=== PATIENT | male | born 1995 | race Caucasian/White ===

== ENCOUNTER → 2019-09-22 13:50 | Outpatient (BNVA) | payer SELFPAY | PROVIDERS: Family Provider Nurse Practitioner; PCP Nurse Practitioner; Visit Provider Nurse Practitioner Family | DX: I10 Essential (primary) hypertension (principal); R04.0 Epistaxis; R00.2 Palpitations; F41.9 Anxiety disorder, unspecified; F32.9 Major depressive disorder, single episode, unspecified; F17.200 Nicotine dependence, unspecified, uncomplicated | CPT/HCPCS: 80053; 80061; 84443; 85025; 85610 ==

== ENCOUNTER 2019-11-04 11:04 | Emergency (ER) | payer SELFPAY ==
[2019-11-04 11:19] VITALS: BMI 34.8
[2019-11-04 11:22] VITALS: BP 161/106; PULSE 97; RESP 16; TEMP 37.2; O2SAT 94
--- NOTE | 2019-11-04 11:34 | XRR_ITS ---
PROCEDURE INFORMATION: Exam: XR Left Knee Exam date and time: 11/04/2019 11:50 AM Age: 24 years old Clinical indication: Patient HX: C/O left knee pain. [place] a pop TECHNIQUE: Imaging protocol: XR Left knee. Views: 3 views. COMPARISON: No relevant prior studies available. FINDINGS: Bones/joints: Normal. Soft tissues: Normal. XR/XR knee LT 3V* [id number] IMPRESSION: No acute findings.
--- NOTE | 2019-11-04 11:51 | W.ED.EXTPRO ---
HPI - Extremity Problem General: Chief complaint: Extremity Injury, Lower Stated complaint: LEFT LEG PAIN Time Seen by Provider: 11/04/19 11:21 History of Present Illness: HPI Narrative: Patient comes in complain about the left knee pain. Patient states that he was standing near his bed lift his leg up on his bed and he felt a pop in his left knee. Said he felt immediate pain. Patient has a history of derangement to that knee previously for experience. Patient says it hurts to straighten his leg out now. Says he has mild pain when it is flexed completely. Denies any swelling or other trauma. MD Complaint: joint pain Onset (ago): hour(s) (2) Pain Consistency: constant Location: left and knee Severity scale (1-10): 7 Quality: aching Radiation: none Relieving factors: immobilization Exacerbating factors: range of motion Associated symptoms: Reports no associated symptoms; Deny chest pain, fever(s) or rash Review of Systems Const: Denies: fever(s), chills or body aches Eyes: Denies: change in vision or blurry vision ENMT: Denies: throat pain or nasal congestion Card: Denies: chest pain or dyspnea on exertion Resp: Denies: dyspnea, productive cough or non-productive cough GI: Denies: abdominal pain, nausea or vomiting : Denies: difficulty urinating Musc: Reports: joint pain (Left knee started this a.m. history of chronic knee pain); Denies: extremity pain Skin/Breast: Denies: rash Neuro: Denies: headache(s) Psych: Denies: anxiety or depression Jose Alejandro/Lymph: Denies: easy bruising [facility] PFSH: Medical History (Updated 09/22/19 @ 17:30 by LUIS Landa) Atypical chest pain Elevated troponin Hypertension Palpitations Surgical History S/P tonsillectomy Family History Other CAD (coronary artery disease) Social History (Updated 09/22/19 @ 14:51 by Lillian Wheat LPN, RT) Smoking and tobacco status: current every day smoker cigarettes Packs smoked per day: 1 Years cigarettes smoked: 15 Second hand smoke exposure: No Alcohol intake: never Lives independently: Yes Household members: spouse and children Marital status: Current occupational status: unemployed History of recent travel: No Current gender identity: Male Physical Exam Const: COMMON NORMALS: no acute distress, average body habitus and patient oriented x3 HENMT: COMMON NORMALS: normocephalic HEAD & SCALP: normal to inspection and normocephalic FACE & SINUS: normal facial exam Eye: COMMON NORMALS: conjunctivae normal GENERAL EYE: appearance normal, both eyes and all related structures CONJUNCTIVA: Yes conjunctivae normal Neck/C-Spine: COMMON NORMALS: no JVD Chest: COMMONS NORMALS: normal inspection of the chest Resp: COMMON NORMALS: normal respiratory effort Cardio: COMMON NORMALS: no JVD GI: INSPECTION: Yes normal to inspection Extremity: COMMON NORMALS: normal to inspection LEFT LOWER EXTREMITY: Yes knee joint (Pain with range of motion. Normal temperature no erythema noted. Pain with extension of the knee. No laxity was able to be determined due to the pain in patient's knee.) Neuro: COMMON NORMALS: patient oriented x3 Course Vital Signs: Vital signs: Vital Signs Temperature 99.0 F 11/04/19 11:22 Pulse Rate 97 11/04/19 11:22 Respiratory Rate 16 11/04/19 11:22 Blood Pressure 161/106 11/04/19 11:22 Pulse Oximetry 94 11/04/19 11:22 Discharge Plan Discharge Prescriptions: No Action nitroglycerin [Nitrostat] 0.4 mg tablet, sublingual 0.4 mg SUBLINGUAL Q5M PRNRF: 0 aspirin [Adult Low Dose Aspirin] 81 mg tablet,delayed release (DR/EC) 81 mg PO QDAY RF: 0 atorvastatin [Lipitor] 40 mg tablet 40 mg PO QDAY RF: 0 carvedilol 12.5 mg tablet 12.5 mg PO Q12H 30 Days Qty: 60 RF: 3 bupropion HCl [Wellbutrin XL] 150 mg tablet extended release 24 hr 150 mg PO QAM Qty: 30 RF: 2 Coding Level of Care Code ED Sales Utility Representative for Al Tapia
[2019-11-04] MEDS: HYDROcodone-acetaminophen 5-325 mg Tablet 1 TAB PO (12:07)
[2019-11-04] MEDS: ketorolac 60 mg/2 mL INJ IM (12:07)
[2019-11-04 12:27] VITALS: BP 148/96; PULSE 86; RESP 18; O2SAT 96
== END 2019-11-04 12:27 | disposition home or self-care (01) ==
PROVIDERS: Emergency Provider Nurse Practitioner Family; PCP Nurse Practitioner
DX: M79.605 Pain in left leg (principal); Z79.82 Long term (current) use of aspirin; I10 Essential (primary) hypertension; F17.210 Nicotine dependence, cigarettes, uncomplicated
CPT/HCPCS: 12345; 73562; 96372; 99281; 99283; E0114; J1885

== ENCOUNTER → 2020-07-29 09:38 | Outpatient (BNVA) | payer SELFPAY | PROVIDERS: PCP Nurse Practitioner; Visit Provider Nurse Practitioner Family | DX: J02.9 Acute pharyngitis, unspecified (principal) | CPT/HCPCS: 87071; 87880 ==

== ENCOUNTER → 2021-07-06 15:24 | Outpatient (BNVA) | payer SELFPAY | PROVIDERS: PCP Nurse Practitioner; Visit Provider Nurse Practitioner Family | DX: Z20.822 Contact with and (suspected) exposure to COVID-19 (principal); R05.9 Cough, unspecified | CPT/HCPCS: 87400; 87635 ==

== ENCOUNTER → 2021-07-07 21:34 | Outpatient (BNVA) | payer SELFPAY | PROVIDERS: PCP Nurse Practitioner; Visit Provider Nurse Practitioner Family | DX: R05.9 Cough, unspecified (principal); Z20.822 Contact with and (suspected) exposure to COVID-19 | CPT/HCPCS: 87801 ==

== ENCOUNTER → 2021-07-17 13:22 | Outpatient (BNVA) | payer SELFPAY | PROVIDERS: PCP Nurse Practitioner; Visit Provider Nurse Practitioner Family | DX: Z20.822 Contact with and (suspected) exposure to COVID-19 (principal); J40 Bronchitis, not specified as acute or chronic; R05.9 Cough, unspecified; J32.0 Chronic maxillary sinusitis | CPT/HCPCS: 87635 ==

== ENCOUNTER 2022-04-05 08:44 | Emergency (ER) | payer OTHER, SELFPAY ==
[2022-04-05 09:00] VITALS: BP 159/91; PULSE 86; RESP 16; TEMP 36.8; O2SAT 99
--- NOTE | 2022-04-05 09:03 | XRR_ITS ---
PROCEDURE INFORMATION: Exam: XR Chest Exam date and time: 04/05/2022 9:11 AM Age: 27 years old Clinical indication: Pain; Angina pectoris; Additional info: Cp TECHNIQUE: Imaging protocol: Radiologic exam of the chest. Views: 1 view. COMPARISON: CR XR chest 1V [id number] 04/01/2019 1:09 PM FINDINGS: Lungs: Normal lung volumes. No interstitial or airspace opacities. Pleural spaces: No pleural effusion. No pneumothorax. Heart/Mediastinum: Normal heart size. Normal mediastinal contour. Midline trachea. Bones/joints: No acute abnormalities. XR/XR chest 1V portable [id number] IMPRESSION: No chest radiographic evidence of acute cardiopulmonary disease.
--- NOTE | 2022-04-05 09:03 | ECG_ITS ---
[facility] Test Date: 2022-04-05 Pat Name: Pascual Cook Department: Room: Gender: Male Customer Training Specialist: : 1995 Requested By: Rhys Vidal Order Number: [id number] Wei MD: Jesus Montano M.D. Measurements Intervals [place] Rate: 84 P: 55 [place]: 148 QRS: 84 QRSD: 94 T: 46 QT: 340 QTc: 402 Interpretive Statements SINUS RHYTHM Compared to ECG 04/01/2019 14:26:16 Sinus arrhythmia no longer present Early repolarization no longer present Electronically Signed On 04-06-2022 13:49:56 CODING CLERKS SUPERVISOR by Jesus Montano M.D. [email or web address] Technologiesmadison healthOrnim Medical/store/NU/[id number] f
[2022-04-05 09:04] VITALS: BP 159/91; PULSE 79; RESP 16; O2SAT 99
--- NOTE | 2022-04-05 09:21 | ED_ITS ---
HPI - Chest Pain General: Chief Complaint: Chest Pain Stated Complaint: chest pain Time Seen by Provider: 04/05/22 08:45 History of Present Illness: Patient is a 27-year-old male who comes to the ED with chest pain. He has a history of chest pain and elevated troponins and underwent a cardiac catheterization and coronary angiogram at [facility] in 2019. They found no significant findings upon catheterization and they opted to treat him medically. Patient says he does not take any medications daily and does not take any hypertension medications. His first episode of chest pain recently occurred at rest 4 days ago and the episode lasted for about 30 minutes and resolved. This morning patient says he got up and was driving to work and started feeling left-sided chest pain that radiates into his left arm. Denies any worsening or improving factors. He rates his current chest pain a 2 out of 10. He does describe the pain as a burning sensation in the chest and said it does feel kind of like acid reflux. He endorses being under a lot of stress in his personal life recently. Denies any diaphoresis or shortness of breath. Associated symptoms: Deny abdominal pain, dyspnea, fever(s), nausea, palpitations or vomiting Review of Systems Const: Denies: fever(s), chills or fatigue Eyes: Denies: change in vision or eye discomfort ENMT: Denies: throat pain, odynophagia, nasal discharge or nasal congestion Card: Reports: chest pain; Denies: palpitations, edema, swelling of feet/ankles, dyspnea on exertion or orthopnea Resp: Denies: dyspnea, productive cough or non-productive cough GI: Denies: abdominal pain, nausea, vomiting, diarrhea, constipation or hematochezia : Denies: flank pain, difficulty urinating, dysuria or hematuria Musc: Denies: neck pain, back pain or extremity swelling Skin/Breast: Denies: rash or new lesions Neuro: Denies: headache(s), numbness in extremities or weakness in extremities PFS ED PFSH: Medical History (Updated 04/05/22 @ 12:07 by TONY Rose) Atypical chest pain Elevated troponin Hypertension Palpitations Surgical History S/P tonsillectomy Family History Other CAD (coronary artery disease) Social History Smoking and tobacco status: never smoked Second hand smoke exposure: Yes Smoking risk assessment/counseling performed?: Yes Alcohol intake: never Desire information about alcohol rehabilitation?: No Counseling given: No Desire information about substance/drug rehabilitation?: No Counseling given: No Adopted: No Caregiver/support person: No Lives independently: Yes Household members: spouse and children Marital status: service: Yes branch: [employer] Current occupational status: unemployed History of recent travel: No Current gender identity: Male Physical Exam Const: COMMON NORMALS: no acute distress, patient oriented x3 and alert GENERAL APPEARANCE: cooperative HENMT: COMMON NORMALS: normocephalic HEAD & SCALP: normocephalic MOUTH: Normal oral and palatal mucosa present THROAT: posterior oropharynx normal and uvula midline Neck/C-Spine: COMMON NORMALS: supple GENERAL: Yes normal visual inspection Resp: COMMON NORMALS: normal respiratory effort, No retractions, No use of accessory muscles and clear to auscultation bilaterally AUSCULTATION: clear to auscultation bilaterally Cardio: COMMON NORMALS: regular rate, regular rhythm, S1 normal heart sound present, S2 normal heart sound present, No gallops present (Cardio), No clicks present (Cardio), No murmurs present (Cardio) and Peripheral pulses 2+ throughout RATE: regular rate RHYTHM: regular rhythm HEART SOUNDS: S1 normal heart sound present and S2 normal heart sound present PERIPHERAL PULSES: Peripheral pulses 2+ throughout GI: COMMON NORMALS: Normal to inspection, nondistended, normoactive bowel sounds present, Soft to palpation, non-tender and no masses PALPATION: Yes Soft to palpation : COMMON NORMALS: Yes no CVA tenderness BLADDER/KIDNEY EXAM: Yes no CVA t enderness Back/Pelvis: COMMON NORMALS: no CVA tenderness Extremity: COMMON NORMALS: normal to inspection Neuro: COMMON NORMALS: patient oriented x3 SENSORIUM/ORIENTATION: Yes alert GAIT: Yes Normal gait present Skin: GENERAL SKIN EXAM: dry skin Course Vital Signs: Vital signs: Vital Signs Temperature 98.2 F 04/05/22 09:00 Pulse Rate 60 04/05/22 12:48 Respiratory Rate 16 04/05/22 12:48 Blood Pressure 118/66 04/05/22 12:48 Pulse Oximetry 96 04/05/22 12:48 Oxygen Delivery Me thod 04/05/22 11:54 MDM - Chest Pain Medical Decision Making Patient is a 27-year-old male who comes to the ED with chest pain. He has a history of chest pain and elevated troponins and underwent a cardiac catheterization and coronary angiogram at [facility] in 2019. Vitals are stable. Exam of patient is benign. CBC and CMP are unremarkable. Troponins negative. EKG showed acute findings. Chest x-ray showed no acute findings. Patient was stable for discharge home and diagnosed with atypical chest pain. He was told to follow-up with his PCP within the next week for reevaluation. Return to ED precautions given. Patient understood and agreed with plan. Lab Data I reviewed the patient's lab results. 04/05/22 09:11 04/05/22 09:11 Radiology Impressions Chest X-Ray 04/05/22 09:03 IMPRESSION: No chest radiographic evidence of acute cardiopulmonary disease. Laboratory Results WBC 5.0 10^3/uL (4.0-10.0) 04/05/22 09:11 RBC 4.75 10^6/uL (4.1-5.3) 04/05/22 09:11 Hgb 14.7 g/dL (11.7-16.6) 04/05/22 09:11 Hct 41.7 % (42.0-52.0) L 04/05/22 09:11 MCV 87.8 fl (80-94) 04/05/22 09:11 MCH 30.9 pg (28.0-34.0) 04/05/22 09:11 MCHC 35.3 g/dL (30.0-36.0) 04/05/22 09:11 RDW 11.9 % (12.1-15.1) L 04/05/22 09:11 Plt Count 186 10^3/cmm (130-400) 04/05/22 09:11 MPV 11.5 fL (7.4-10.4) H 04/05/22 09:11 Neut % (Auto) 58.6 % 04/05/22 09:11 Lymph % (Auto) 32.0 % 04/05/22 09:11 [place] % (Auto) 7.0 % 04/05/22 09:11 Eos % (Auto) 1.8 % 04/05/22 09:11 Baso % (Auto) 0.4 % 04/05/22 09:11 Neut # (Auto) 2.91 10^3/uL (1.8-7.7) 04/05/22 09:11 Lymph # (Auto) 1.6 10^3/uL (0.8-4.8) 04/05/22 09:11 [place] # (Auto) 0.4 10^3/uL (0.2-0.9) 04/05/22 09:11 Eos # (Auto) 0.1 10^3/uL (0.0-0.8) 04/05/22 09:11 Baso # (Auto) 0.0 10^3/uL (0.0-0.1) 04/05/22 09:11 Nucleated RBC % (auto) 0 % 04/05/22 09:11 Nucleated RBCs # 0.0 /100WBC 04/05/22 09:11 Sodium 141 mmol/L (136-145) 04/05/22 09:11 Potassium 3.8 mmol/L (3.5-5.1) 04/05/22 09:11 Chloride 105 mmol/L (98-107) 04/05/22 09:11 Carbon Dioxide 26 mmol/L (22-29) 04/05/22 09:11 Anion Gap 13.8 (5-19) 04/05/22 09:11 BUN 17 mg/dL (6-20) 04/05/22 09:11 Creatinine 1.0 mg/dL (0.7-1.2) 04/05/22 09:11 GFR Calculation 89.0 mL/min (90-130) L 04/05/22 09:11 Glucose 99 mg/dL (65-115) 04/05/22 09:11 Calculated Osmolality 294 mOsm/kg (285-295) 04/05/22 09:11 Calcium 9.5 mg/dL (8.5-10.5) 04/05/22 09:11 Total Bilirubin 0.4 mg/dL (0.15-1.2) 04/05/22 09:11 AST 21 U/L (0-40) 04/05/22 09:11 ALT 23 U/L (0-41) 04/05/22 09:11 Alkaline Phosphatase 85 U/L (40-130) 04/05/22 09:11 Troponin T Baseline 6 ng/L (0-15) 04/05/22 09:11 Troponin T 120 Minute 6.00 ng/L (0-15) 04/05/22 11:21 Delta Troponin T 0 ABS# (0-10) 04/05/22 11:21 NT-Pro-B Natriuret Pep 5 pg/mL (0-125) 04/05/22 09:11 Total Protein 7.2 g/dL (6.6-8.7) 04/05/22 09:11 Albumin 4.6 g/dL (3.5-5.2) 04/05/22 09:11 Globulin 2.6 g/dL (1.3-4.6) 04/05/22 09:11 EKG Data EKG 1: EKG interpretation date: 04/05/22 Interpretation: Sinus rhythm, early repolarization in lead II. No other ST segment elevation or depression seen. 71 bpm. Discharge Plan Discharge Patient Disposition: Home Clinical Impression: Atypical chest pain Condition: Stable Prescriptions: No Action ibuprofen 200 mg Tablet 400 mg PO Q6H PRN (Reason: Pain) Discharge Orders: Discharge ED (Routine); Ordered 04/05/22 Ordered By: Rhys Vidal Referrals: Dhruv Mata FNP-C [Primary Care Provider] - Discharge Diet: Regular Discharge Activity: Increase activity as tolerated Patient Instructions: Chest Pain (DC) Activity Restrictions/Additional Instructions: Follow-up with medical provider as directed in the next 5-7 days for reevaluation. Take medications as prescribed. Return to the ER or your medical provider if condition worsens. Please read and understand discharge instructions. Thank you for choosing [facility] for your healthcare needs today. Please realize this is an emergency room and that we are providing you with a medical screening exam and this may not be complete and all inclusive of all the testing and or work up that you may need to determine your ailment or severity of your illness. It is very important that you follow up as instructed or that you return to the Emergency Department should you have concerns or if your condition changes or worsens in any way. Stand Alone Forms: Work/School Release Coding Level of Care Code ED Medical Records Secretary for Chg Fwd Exam Comprehensive
[2022-04-05 09:39] LABS: Basophils % 0.4 %; Eosinophils # 0.1 10^3/uL (0.0-0.8); Eosinophils % 1.8 %; Hematocrit 41.7 % (42.0-52.0); Hemoglobin 14.7 g/dL (11.7-16.6); Lymphocytes # 1.6 10^3/uL (0.8-4.8); Mean Corpuscular HGB Conc 35.3 g/dL (30.0-36.0); Mean Corpuscular Hemoglobin 30.9 pg (28.0-34.0); Mean Corpuscular Volume 87.8 fl (80-94); Mean Platelet Volume 11.5 fL (7.4-10.4); Monocytes # 0.4 10^3/uL (0.2-0.9); Neutrophils # 2.91 10^3/uL (1.8-7.7); Neutrophils % 58.6 %; Nucleated Red Blood Cells % 0 %; Platelet Count 186 10^3/cmm (130-400); Red Blood Count 4.75 10^6/uL (4.1-5.3); Red Cell Distribution Width 11.9 % (12.1-15.1)
[2022-04-05 09:58] LABS: Troponin(5th) Baseline 6 ng/L (0-15)
[2022-04-05] MEDS: aspirin 81 mg Chew Tablet 324 MG PO (10:02)
[2022-04-05 10:07] LABS: Alanine Aminotransferase 23 U/L (0-41); Albumin Level 4.6 g/dL (3.5-5.2); Alkaline Phosphatase 85 U/L (40-130); Aspartate Amino Transferase 21 U/L (0-40); Blood Urea Nitrogen 17 mg/dL (6-20); Calcium 9.5 mg/dL (8.5-10.5); Carbon Dioxide 26 mmol/L (22-29); Chloride 105 mmol/L (98-107); Globulin 2.6 g/dL (1.3-4.6); Glucose 99 mg/dL (65-115); NT Pro B Type Natriuretic Pept 5 pg/mL (0-125); Osmolality Calculated 294 mOsm/kg (285-295); Sodium 141 mmol/L (136-145); Total Bilirubin 0.4 mg/dL (0.15-1.2); Total Protein 7.2 g/dL (6.6-8.7)
[2022-04-05 10:08] LABS: Anion Gap 13.8 (5-19); Potassium 3.8 mmol/L (3.5-5.1)
--- NOTE | 2022-04-05 11:03 | ECG_ITS ---
[facility] Test Date: 2022-04-05 Pat Name: Pascual Cook Department: Room: Gender: Male Sheet Turner: : 1995 Requested By: Rhys Vidal Order Number: [id number] Wei MD: Jesus Montano M.D. Measurements Intervals [place] Rate: 71 P: 45 ND: 160 QRS: 85 QRSD: 91 T: 17 QT: 360 QTc: 393 Interpretive Statements SINUS RHYTHM ST ELEVATION, PROBABLY EARLY REPOLARIZATION [ST ELEVATION WITH NORMALLY INFLECTED T-WAVE] Compared to ECG 04/05/2022 09:09:41 ST (T wave) deviation now present Early repolarization now present Electronically Signed On 04-06-2022 13:54:43 ENAMEL PULVERIZER by Jesus Montano M.D. [email or web address].Heartbeat/store/OM/[id number]
[2022-04-05 11:54] VITALS: BP 118/66; PULSE 60; RESP 16; O2SAT 96
[2022-04-05 12:07] LABS: Troponin 5 2HR Delta 0 ABS# (0-10)
[2022-04-05 12:48] VITALS: BP 118/66; PULSE 60; RESP 16; O2SAT 96
== END 2022-04-05 12:50 | disposition home or self-care (01) ==
PROVIDERS: Emergency Provider Physician Assistant; PCP Nurse Practitioner
DX: R07.89 Other chest pain (principal); Z77.22 Contact with and (suspected) exposure to environmental tobacco smoke (acute) (chronic); I10 Essential (primary) hypertension
CPT/HCPCS: 36415; 71045; 80053; 83880; 84484; 85025; 93005; 99285

== ENCOUNTER → 2022-07-25 16:31 | Outpatient (BNVA) | payer OTHER, SELFPAY | PROVIDERS: PCP Nurse Practitioner; Visit Provider Nurse Practitioner Family | DX: J02.9 Acute pharyngitis, unspecified (principal) | CPT/HCPCS: 87071; 87880 ==

== ENCOUNTER → 2022-09-11 08:35 | Outpatient (BNVA) | payer SELFPAY | PROVIDERS: PCP Nurse Practitioner; Visit Provider Nurse Practitioner Family | DX: J02.9 Acute pharyngitis, unspecified (principal) | CPT/HCPCS: 87880 ==

== ENCOUNTER 2023-06-06 21:10 | Emergency (ER) | payer SELFPAY ==
--- NOTE | 2023-06-06 21:11 | XRR_ITS ---
PROCEDURE INFORMATION: Exam: XR Chest Exam date and time: 06/06/2023 9:15 PM Age: 28 years old Clinical indication: Chest wall pain; Additional info: Chest pain TECHNIQUE: Imaging protocol: Radiologic exam of the chest. Views: 1 view. COMPARISON: CR XR chest 1V portable [id number] 04/05/2022 9:11 AM FINDINGS: Lungs: Unremarkable. No consolidation. Pleural spaces: Unremarkable. No pleural effusion. No pneumothorax. Heart/Mediastinum: Unremarkable. No cardiomegaly. Bones/joints: Unremarkable. XR/XR chest 1V portable [id number] IMPRESSION: No acute findings.
--- NOTE | 2023-06-06 21:12 | ECG_ITS ---
Test Date: 2023-06-06 Pat Name: Pascual Cook Department: Room: Gender: Male Fashion Merchandiser: : 1995 Requested By: Klever Almanza Order Number: [id number] Wei MD: Jesus Montano M.D. Measurements Intervals [place] Rate: 67 P: 48 MA: 164 QRS: 68 QRSD: 88 T: 52 QT: 355 QTc: 375 Interpretive Statements SINUS RHYTHM Compared to ECG 04/05/2022 11:12:31 ST (T wave) deviation no longer present Early repolarization no longer present Electronically Signed On 06-07-2023 10:02:32 CARD TAPE CONVERTER OPERATOR by Jesus Montano M.D. [email or web address] surgical hospitalCoachSeekkettering health.[employer]/store/Ov/[id number]
--- NOTE | 2023-06-06 21:12 | ED_ITS ---
HPI - Chest Pain 2 General: Chief Complaint: Chest Pain Stated Complaint: Chest pain Time Seen by Provider: 06/06/23 21:11 History of Present Illness: 28-year-old male patient comes in today for complaints of chest discomfort. Patient reports stabbing chest pain that started while playing video games with his friends. Patient does not routinely consume energy drinks. Patient appears nontoxic. Patient denies any routine medicines. Patient has similar event about 2 years ago at that time he was worked up with no significant abnormalities found. Patient did have Angiocath and angiogram done. Patient was brought in by EMS and was given 1 nitro and 1 aspirin. Patient still continues to have some chest pressure. Patient has a history of hypertension but does not take any medication at this time. Review of Systems 2 General: Reports: 10 or more systems reviewed and unremarkable except in HPI and below PFSH ED 2 PFSH: Medical History (Updated 06/06/23 @ 23:45 by Klever Segura [facility]) Atypical chest pain Palpitations Elevated troponin Hypertension Surgical History S/P tonsillectomy Family History Other CAD (coronary artery disease) Social History Smoking and tobacco/nicotine status: never used tobacco/nicotine Second hand smoke exposure: Yes Alcohol intake: never Substance/Drug Use: never Adopted: No Caregiver/support person: No Lives independently: Yes Household members: spouse and children Marital status: service: Yes branch: [employer] Current occupational status: unemployed Do you think of yourself as: Straight/Heterosexual Current gender identity: Male Physical Exam 2 Const: COMMON NORMALS: alert HENMT: COMMON NORMALS: atraumatic HEAD & SCALP: atraumatic Resp: COMMON NORMALS: normal respiratory effort and clear to auscultation bilaterally AUSCULTATION: clear to auscultation bilaterally Cardio: COMMON NORMALS: regular rate and regular rhythm RATE: regular rate RHYTHM: regular rhythm GI: COMMON NORMALS: non-tender : COMMON NORMALS: Yes no CVA tenderness BLADDER/KIDNEY EXAM: Yes no CVA tenderness Back/Pelvis: COMMON NORMALS: no CVA tenderness Extremity: COMMON NORMALS: normal to inspection Neuro: SENSORIUM/ORIENTATION: Yes alert Skin: COMMON NORMALS: turgor normal GENERAL SKIN EXAM: turgor normal Course 2 Vital Signs: Vital signs: Vital Signs Temperature 98.6 F 06/06/23 21:14 Pulse Rate 80 06/06/23 22:57 Respiratory Rate 15 06/06/23 22:57 Blood Pressure 122/74 06/06/23 22:57 Pulse Oximetry 92 06/06/23 22:57 MDM - Chest Pain Medical Decision Making Patient comes in today for complaints of chest pain that started about 1 hour prior to arrival. Patient was given nitro and aspirin and route to the ER. Patient was playing video games with his friends when the pain started. Patient appears nontoxic. Skin is warm and dry color is normal for ethnicity. Good perfusion is noted. Vital signs are normal except for some mild elevation of blood pressure at 156/94. Patient does report that his blood pressure seems to run that all the time. Patient does not take any routine medicines. Differential diagnosis includes but not limited to gallbladder disease, pancreatitis, stable angina, ACS, PE. No changes was noted in troponin at 2 hours. CBC and CMP were normal. D-dimer was negative. I believe patient probably most likely has esophagitis secondary to chewing tobacco. I recommended follow-up and probably get an endoscopy for further evaluation. Patient at this time wanted to wait for referral and would follow-up with his primary care to talk with her more. I agreed to plan and recommendations of treatment. Lab Data 06/06/23 21:26 06/06/23 21:26 Radiology Impressions Chest X-Ray 06/06/23 21:11 IMPRESSION: No acute findings. Laboratory Results WBC 5.86 10^3/uL (3.29-11.43) 06/06/23 21: RBC 4.64 10^6/uL (3.85-5.65) 06/06/23 21: Hgb 13.90 g/dL (11.27-16.99) 06/06/23 21: Hct 39.8 % (37-53) 06/06/23 21: MCV 85.8 fl (82-101) 06/06/23 21: MCH 30.0 pg (27-33) 06/06/23: MCHC 34.9 g/dL (30-55) 06/06/23 21: RDW 12.4 % (12.1-15.1) 06/06/23 21: Plt Count 198 10^3/cmm (157-399) 06/06/23 21: MPV 11.2 fL (7.4-10.4) H 06/06/23 21: Neut % (Auto) 64.7 % 06/06/23: Lymph % (Auto) 26.1 % 06/06/23: [place] % (Auto) 6.8 % 06/06/23: Eos % (Auto) 1.9 % 06/06/23: Baso % (Auto) 0.3 % 06/06/23: Neut # (Auto) 3.79 10^3/uL (1.8-7.7) 06/06/23: Lymph # (Auto) 1.5 10^3/uL (0.8-4.8) 06/06/23: [place] # (Auto) 0.4 10^3/uL (0.2-0.9) 06/06/23: Eos # (Auto) 0.1 10^3/uL (0.0-0.8) 06/06/23: Baso # (Auto) 0.0 10^3/uL (0.0-0.1) 06/06/23: Nucleated RBC % (auto) 0 % 06/06/23: Nucleated RBCs # 0.0 /100WBC 06/06/23: D-Dimer <= 0.27 ug/mLFEU (0-0.59) 06/06/23 21: Sodium 138 mmol/L (136-145) 06/06/23 21: Potassium 4.0 mmol/L (3.5-5.1) 06/06/23: Chloride 102 mmol/L (98-107) 06/06/23: Carbon Dioxide 22 mmol/L (22-29) 06/06/23: Anion Gap 16.0 (5-19) 06/06/23: BUN 19 mg/dL (6-20) 06/06/23: Creatinine 0.9 mg/dL (0.7-1.2) 06/06/23: GFR Calculation 99.8 mL/min (90-130) 06/06/23 21: Glucose 95 mg/dL (65-115) 06/06/23 21: Calculated Osmolality 288 mOsm/kg (285-295) 06/06/23 21: Calcium 9.0 mg/dL (8.5-10.5) 06/06/23 21: Total Bilirubin 0.3 mg/dL (0.15-1.2) 06/06/23 21: AST 21 U/L (0-40) 06/06/23 21: ALT 26 U/L (0-41) 06/06/23 21: Alkaline Phosphatase 95 U/L (40-130) 06/06/23: Troponin T Baseline < 6 ng/L (0-15) 06/06/23: Troponin T 120 Minute 6.00 ng/L (0-15) 06/06/23 23:19 Delta Troponin T 0.54730 ABS# (0-10) 06/06/23 23:19 Total Protein 7.3 g/dL (6.6-8.7) 06/06/23 21: Albumin 4.4 g/dL (3.5-5.2) 06/06/23 21: Globulin 2.9 g/dL (1.3-4.6) 06/06/23 21: Lipase 29 U/L (13-60) 06/06/23 21:26 All radiology interpretation(s) finalized by discharge EKG Data EKG 1: I personally reviewed and interpreted this EKG as follows: EKG interpretation date: 06/06/23 EKG interpretation time: 21:10 Prior EKG tracings: not available for review Interpretation: EKG shows sinus rhythm with a regular rate [address] elevation or ectopy is noted. No prior exam was available for comparison. Discharge Plan Discharge Patient Disposition: Home Clinical Impression: Chest pain Qualifiers: Chest pain type: unspecified Qualified Code(s): R07.9 - Chest pain, unspecified Condition: Stable Prescriptions: No Action keixfydhcpmfqdj-mhdhqrwbf-GT [Bromfed DM] 2-30-10 mg/5 mL syrup 7.5 ml PO Q6H PRN (Reason: sinus symptoms) Qty: 118 0RF fluticasone propionate 50 mcg/actuation spray,suspension 2 spray intranasal DAILY Qty: 16 0RF Rx Instructions: administer into each nostril ibuprofen 200 mg Tablet 400 mg PO Q6H PRN (Reason: Pain) Discharge Orders: Discharge ED (Routine); Ordered 06/06/23 Ordered By: Klever Segura Referrals: Dhruv Mata, HYDROMETEOROLOGY TEACHER-C [Primary Care Provider] - Discharge Diet: Usual diet Discharge Activity: Increase activity as tolerated Patient Instructions: Chest Pain (ED) Activity Restrictions/Additional Instructions: Follow-up with primary care. Return to ER for new concerns or worsening symptoms. Coding Level of Care Code ED Scrap Crusher for Al Tapia
[2023-06-06 21:14] VITALS: BP 156/94; PULSE 75; RESP 16; TEMP 37; O2SAT 93
[2023-06-06 21:40] LABS: Basophils % 0.3 %; Eosinophils # 0.1 10^3/uL (0.0-0.8); Eosinophils % 1.9 %; Hematocrit 39.8 % (37-53); Lymphocytes # 1.5 10^3/uL (0.8-4.8); Lymphocytes % 26.1 %; Mean Corpuscular HGB Conc 34.9 g/dL (30-55); Mean Corpuscular Volume 85.8 fl (82-101); Mean Platelet Volume 11.2 fL (7.4-10.4); Monocytes # 0.4 10^3/uL (0.2-0.9); Monocytes % 6.8 %; Neutrophils # 3.79 10^3/uL (1.8-7.7); Neutrophils % 64.7 %; Nucleated Red Blood Cells % 0 %; Platelet Count 198 10^3/cmm (157-399); Red Blood Count 4.64 10^6/uL (3.85-5.65); Red Cell Distribution Width 12.4 % (12.1-15.1); White Blood Count 5.86 10^3/uL (3.29-11.43)
[2023-06-06 21:52] LABS: D Dimer <= 0.27 ug/mLFEU (0-0.59)
[2023-06-06 21:55] LABS: Troponin(5th) Baseline < 6 ng/L (0-15)
[2023-06-06 21:58] LABS: Alanine Aminotransferase 26 U/L (0-41); Albumin Level 4.4 g/dL (3.5-5.2); Alkaline Phosphatase 95 U/L (40-130); Aspartate Amino Transferase 21 U/L (0-40); Blood Urea Nitrogen 19 mg/dL (6-20); Carbon Dioxide 22 mmol/L (22-29); Chloride 102 mmol/L (98-107); Globulin 2.9 g/dL (1.3-4.6); Glomerular Filtration Rate 99.8 mL/min (90-130); Glucose 95 mg/dL (65-115); Lipase 29 U/L (13-60); Osmolality Calculated 288 mOsm/kg (285-295); Sodium 138 mmol/L (136-145); Total Bilirubin 0.3 mg/dL (0.15-1.2); Total Protein 7.3 g/dL (6.6-8.7)
[2023-06-06 22:01] VITALS: BP 156/94; PULSE 83; RESP 16; O2SAT 97
[2023-06-06 22:57] VITALS: BP 122/74; PULSE 80; RESP 15; O2SAT 92
[2023-06-06 23:43] LABS: Troponin 5 2HR Delta 0.00001 ABS# (0-10)
[2023-06-06 23:56] VITALS: BP 124/71; PULSE 77; RESP 20; O2SAT 93
== END 2023-06-07 00:08 | disposition home or self-care (01) ==
PROVIDERS: Emergency Provider Nurse Practitioner Family; PCP Nurse Practitioner
DX: R07.9 Chest pain, unspecified (principal); I10 Essential (primary) hypertension; Z77.22 Contact with and (suspected) exposure to environmental tobacco smoke (acute) (chronic)
CPT/HCPCS: 36415; 71045; 80053; 83690; 84484; 85025; 85378; 93005; 99285

== ENCOUNTER 2023-07-14 19:00 | Emergency (ER) | payer SELFPAY ==
[2023-07-14 19:12] VITALS: BP 164/101; PULSE 60; RESP 18; TEMP 36.7; O2SAT 98; BMI 33.9
--- NOTE | 2023-07-14 19:14 | CTR_ITS ---
PROCEDURE INFORMATION: Exam: CT Head Without Contrast Exam date and time: 07/14/2023 7:27 PM Age: 28 years old Clinical indication: Injury or trauma; Blunt trauma (contusions or hematomas); Patient HX: C/O persistent occipital pain from being struck in occiput by a bit that was blown off of an impact wrench two days ago. ; Additional info: Head injury TECHNIQUE: Imaging protocol: Computed tomography of the head without contrast. Radiation optimization: All CT scans at this facility use at least one of these dose optimization techniques: automated exposure control; mA and/or kV adjustment per patient size (includes targeted exams where dose is matched to clinical indication); or iterative reconstruction. COMPARISON: CT neck w con* [id number] 03/25/2019 7:45 PM RADIATION DOSE METRICS: Total DLP (mGy-cm): 1069.08 FINDINGS: Brain: Normal. No hemorrhage. Unremarkable white matter. No mass effect. Cerebral ventricles: No ventriculomegaly. Pituitary gland and sella: Empty sella. Paranasal sinuses: Visualized sinuses are unremarkable. No fluid levels. Mastoid air cells: Visualized mastoid air cells are well aerated. Bones/joints: Unremarkable. No acute fracture. Soft tissues: Possible small posterior right parietal scalp contusion. CT/CT head wo con* [id number] IMPRESSION: 1. No fracture or intracranial hemorrhage.
--- NOTE | 2023-07-14 19:19 | W.ED.HEATRA ---
HPI - Head Injury General: Chief complaint: Head Injury Stated complaint: hit in head by impact drill, headache mental parham Time Seen by Provider: 07/14/23 19:14 History of Present Illness: 28-year-old male patient comes in today for complaints of persistent headache after a head injury on Saturday. Patient reports that a drill bit from an impact wrench came off and hit him in the back of the head on Saturday. Patient reports that he had a persistent headache since the incident. Patient's reports also include light sensitivity and mood change. Patient reports that he is more irritable than usual. Review of Systems General: Reports: 10 or more systems reviewed and unremarkable except in HPI and below Neuro: Reports: headache(s) [facility] ED PFSH: Medical History (Updated 07/14/23 @ 20:23 by LUIS Ruiz) Atypical chest pain Palpitations Elevated troponin Hypertension Surgical History S/P tonsillectomy Family History Other CAD (coronary artery disease) Social History Smoking and tobacco/nicotine status: never used tobacco/nicotine Second hand smoke exposure: Yes Alcohol intake: never Substance/Drug Use: never Adopted: No Caregiver/support person: No Lives independently: Yes Household members: spouse and children Marital status: service: Yes branch: [employer] Current occupational status: unemployed Do you think of yourself as: Straight/Heterosexual Current gender identity: Male Physical Exam Const: COMMON NORMALS: alert HENMT: COMMON NORMALS: normocephalic HEAD & SCALP: normocephalic and scalp tenderness (Left occipital, no injury noted) Neck/C-Spine: COMMON NORMALS: full ROM Resp: COMMON NORMALS: normal respiratory effort and clear to auscultation bilaterally AUSCULTATION: clear to auscultation bilaterally GI: COMMON NORMALS: non-tender Extremity: COMMON NORMALS: full ROM Neuro: SENSORIUM/ORIENTATION: Yes alert Skin: COMMON NORMALS: turgor normal GENERAL SKIN EXAM: turgor normal Course Vital Signs: Vital signs: Vital Signs Temperature 98.1 F 07/14/23 19:12 Pulse Rate 91 07/14/23 21:02 Respiratory Rate 18 07/14/23 21:02 Blood Pressure 118/60 07/14/23 21:02 Pulse Oximetry 97 07/14/23 21:02 Oxygen Delivery Me thod Room Air 07/14/23 19:12 MDM - Head Injury Medcial Decision Making 28-year-old male patient reports being struck in the back of the head by a drill bit on Saturday. On exam patient has a area of tenderness and mild swelling to the left occipital region of scalp. No open skin is noted. No obvious hematoma. CT of the head noted no intracranial bleeding or skull fracture. Reviewed exam with patient recommended treatment for concussion and need for follow-up. Patient reported understanding. Lab Data Radiology Impressions Head CT 07/14/23 19:14 IMPRESSION: 1. No fracture or intracranial hemorrhage. All radiology interpretation(s) finalized by discharge Discharge Plan Discharge Patient Disposition: Home Clinical Impression: Concussion without loss of consciousness Qualifiers: Encounter type: initial encounter Qualified Code(s): S06.0X0A - Concussion without loss of consciousness, initial encounter Condition: Stable Prescriptions: No Action [id number] [Bromfed DM] 2-30-10 mg/5 mL syrup 7.5 ml PO Q6H PRN (Reason: sinus symptoms) Qty: 118 0RF fluticasone propionate 50 mcg/actuation spray,suspension 2 spray intranasal DAILY Qty: 16 0RF Rx Instructions: administer into each nostril ibuprofen 200 mg Tablet 400 mg PO Q6H PRN (Reason: Pain) Discharge Orders: Discharge ED (Routine); Ordered 07/14/23 Ordered By: Klever Segura Referrals: Dhruv Mata, [employer] [facility] [Primary Care Provider] - Discharge Diet: Usual diet Discharge Activity: Increase activity as tolerated Patient Instructions: Concussion (ED) Activity Restrictions/Additional Instructions: Drink plenty of fluids. Use acetaminophen or ibuprofen as needed for pain. Activity as tolerated. Follow-up with primary care for further instructions. Return to ER for new concerns. Stand Alone Forms: Work/School Release Coding Level of Care Code ED Log Handler for Al Tapia
[2023-07-14 21:02] VITALS: BP 118/60; PULSE 91; RESP 18; O2SAT 97
== END 2023-07-14 21:01 | disposition home or self-care (01) ==
PROVIDERS: Emergency Provider Nurse Practitioner Family; PCP Nurse Practitioner
DX: S06.0X0A Concussion without loss of consciousness, initial encounter (principal); I10 Essential (primary) hypertension; Z77.22 Contact with and (suspected) exposure to environmental tobacco smoke (acute) (chronic); W20.8XXA Other cause of strike by thrown, projected or falling object, initial encounter
CPT/HCPCS: 70450; 99284